=== PATIENT | male | born 1955 | race Caucasian/White ===

== ENCOUNTER 2018-02-17 09:06 | Day surgery (SDC) | payer BC, OTHER ==
[~2018-02-17 09:06] MED LIST: Lactated Ringers 1,000 ML IV SCH; Sodium Chloride 0.9% 10 ML Syringe FLUSH PRN
--- NOTE | 2018-02-17 10:14 | PCM.PN ---
- General Info Date of Service: 02/17/18 - Review of Systems Systems Review Comment:: 62-year-old male referred for colonoscopy. He has a history of diverticulosis as well as colon polyps. His last colon exam was about 5 years ago. I have discussed the proposed colonoscopy with the patient. His recent history and physical is reviewed and there is no significant changes noted. He agrees to proceed with colonoscopy excepting risks. - Patient Data Vitals - Most Recent: Last Vital Signs Temp 97.9 F 02/17/18 09:31 Pulse 54 L 02/17/18 09:31 Resp 18 02/17/18 09:31 BP 143/90 H 02/17/18 09:31 Pulse Ox 94 L 02/17/18 09:31 Weight - Most Recent: 86.183 kg Med Orders - Current: Current Medications Lactated Ringer's (Ringers, Lactated) 1,000 mls @ 125 mls/hr IV ASDIRECTED CHELSIE Last Admin: 02/17/18 09:40 Dose: 125 mls/hr Sodium Chloride (Saline Flush) 10 ml FLUSH ASDIRECTED PRN PRN Reason: Keep Vein Open - Problem List Review Problem List Initiated/Reviewed/Updated: Yes - Assessment Assessment:: history of colon polyps - Plan Plan:: Colonoscopy
[2018-02-17] MEDS ORDERED: Propofol 200 MG/20 ML SDV ONE ×2 (10:15→10:24)
--- NOTE | 2018-02-17 11:01 | PCM.OPNOTE ---
- General Post-Op/Procedure Note Date of Surgery/Procedure: 02/17/18 Operative Procedure(s): Colonoscopy Findings: Moderate Sigmoid Diverticulosis Pre Op Diagnosis: History of colon polyps Post-Op Diagnosis: Diverticulosis Anesthesia Technique: MAC Primary Surgeon: Dionicio Frye Pathology: none Output, Urine Amount: 0 EBL in mLs: 0 Complications: None Condition: Good
--- NOTE | 2018-02-18 08:30 | OR ---
Date of Procedure: 02/17/2018 PREOPERATIVE DIAGNOSIS: History of colon polyps. POSTOPERATIVE DIAGNOSIS: Diverticulosis. OPERATIONS PERFORMED: Colonoscopy. INDICATIONS FOR SURGERY: This 62-year-old male has a history of colon polyps and comes for surveillance colonoscopy. FINDINGS: No polyps were seen on today's exam. The patient has a moderate degree of uncomplicated sigmoid diverticulosis. The remainder of the colon appears normal. DESCRIPTION OF PROCEDURE: The patient was taken to the operating room. He was given intravenous sedation, and with him in the left lateral decubitus position, digital rectal exam was performed showing no rectal masses. The Olympus colonoscope was inserted into the rectum. Retroflexed examination of the rectal canal was performed. The scope was then carefully advanced under direct visualization through the entire length of the colon until the cecum was reached. Cecal acquisition was confirmed by noting the normal internal cecal anatomy including the appendiceal orifice and ileocecal valve. After examining the cecum, the scope was slowly withdrawn sequentially re-examining the colonic segments until the entire colon and rectum had been fully examined. The scope was removed and the patient was taken from the operating room in satisfactory condition. ESTIMATED BLOOD LOSS: Zero. COMPLICATIONS: None. PROGNOSIS: Good. FRANCE Frye MD /[id number]
== END 2018-02-17 11:52 | disposition home or self-care (01) ==
LOC: LL.SDS 09:06
PROVIDERS: ATTEND Surgery
DX: Z12.11 Encounter for screening for malignant neoplasm of colon (principal); K57.30 Diverticulosis of large intestine without perforation or abscess without bleeding; I10 Essential (primary) hypertension; I25.10 Atherosclerotic heart disease of native coronary artery without angina pectoris; R80.9 Proteinuria, unspecified; E11.9 Type 2 diabetes mellitus without complications; E78.5 Hyperlipidemia, unspecified; E66.9 Obesity, unspecified; K21.9 Gastro-esophageal reflux disease without esophagitis; Z79.899 Other long term (current) drug therapy; Z88.2 Allergy status to sulfonamides; Z86.010 Personal history of colon polyps
CPT/HCPCS: 45378; J2704; J7120

== ENCOUNTER 2020-08-11 09:09 | Emergency (ER) | payer MEDICARE, OTHER ==
[2020-08-11 09:44] LABS: PTT,PARTIAL THROMBOPLSTIN TIME 24.9 SEC (24.5-32.8)
[2020-08-11 09:46] LABS: CHLORIDE,CL 102 mmol/L (98-107); SODIUM,NA 138 mmol/L (136-145)
[2020-08-11] MEDS ORDERED: methylPREDNISolone Sodium Succinate 125 MG/2 ML SDV IVPUSH ONE (09:48)
[2020-08-11] MEDS ORDERED: Mineral Oil/Petrolatum Ophth Oint 3.5 GM Tube EYERT ONE (09:51)
[2020-08-11] MEDS: Sodium Chloride 0.9% 10 ML Syringe FLUSH PRN ×2 (10:15→10:16)
--- NOTE | 2020-08-11 11:06 | EDM.PDOC ---
ED HPI GENERAL MEDICAL PROBLEM - General Chief Complaint: Neurological Problem Stated Complaint: stroke code Time Seen by Provider: 08/11/20 09:16 Source of Information: Reports: Patient History Limitations: Reports: No Limitations - History of Present Illness INITIAL COMMENTS - FREE TEXT/NARRATIVE: Patient comes to ER with right sided facial weakness/numbness. Right eye irrit ated. Cannot fully close it or wink. No history of similar problem in past. Overall health has been well other than elevated BP/HTN recent weeks. Mild right side headache. Treatments PSYCHOLOGIST SOCIAL: Reports: Aspirin - Related Data Allergies Allergy/AdvReac Type Severity Reaction Status Date / Time atorvastatin [From Lipitor] Allergy UNKNOWN Verified 08/11/20 09:37 bisoprolol [From Ziac] Allergy UNKNOWN Verified 08/11/20 09:37 fluvastatin [From Lescol] Allergy UNKNOWN Verified 08/11/20 09:37 hydrochlorothiazide Allergy UNKNOWN Verified 08/11/20 09:37 [From Ziac] rosuvastatin [From Crestor] Allergy UNKNOWN Verified 08/11/20 09:37 Qkqtdhy-Bjr-Hym Reductase Allergy Other Verified 08/11/20 09:38 Inhibitor Home Meds: Home Meds ALPRAZolam [Alprazolam] 0.25 - 0.5 mg PO Q6HR PRN 02/16/18 [History] Aspirin 325 mg PO BEDTIME 02/16/18 [History] Fish Oil/[place]-3 Fatty Acids [Fish Oil 1,000 MG] 1 each PO BID 02/16/18 [History] Flaxseed Oil 1,000 mg PO BID 02/16/18 [History] Insulin Glargine,Hum.Rec.Anlog [Talat Morin] 62 unit SQ BEDTIME 02/16/18 [History] Lisinopril 20 mg PO BID 02/16/18 [History] Loratadine 10 mg PO BID 02/16/18 [History] Omeprazole 20 mg PO DAILY 02/16/18 [History] Terazosin [Hytrin] 4 mg PO BEDTIME 02/16/18 [History] Ubidecarenone [Co Q-10] 30 mg PO DAILY 02/16/18 [History] Vitamin E 400 unit PO BID 02/16/18 [History] amLODIPine Besylate [Norvasc] 10 mg PO DAILY 02/16/18 [History] calcium polycarbophiL [Fibercon] 2 tab PO BID 02/16/18 [History] Cholecalciferol (Vitamin D3) [Vitamin D3] 1,000 tab PO DAILY 02/17/18 [History] Non-Formulary Medication [NF Drug] 1 cap PO BID 02/17/18 [History] Non-Formulary Medication [NF Drug] 1 tab PO ASDIRECTED PRN 02/17/18 [History] hydroCHLOROthiazide [Hydrochlorothiazide] 25 mg PO BID 02/17/18 [History] sitaGLIPtin Phos/Metformin HCl [Janumet 50-1,000 MG] 1 tab PO BID 02/17/18 [History] Liraglutide [Victoza] 1.2 mg SUBCUT DAILY 08/11/20 [History] Metoprolol Tartrate 1 tab PO BID 08/11/20 [History] Potassium Chloride 2 tab PO QAM 08/11/20 [History] Potassium Chloride 3 tab PO BEDTIME 08/11/20 [History] Terazosin [Hytrin] 1 cap PO QAM 08/11/20 [History] predniSONE 60 mg PO DAILY #9 tab 08/11/20 [Rx] Past Medical History HEENT History: Reports: Cataract, Impaired Vision Other HEENT History: wears glasses Cardiovascular History: Reports: High Cholesterol, Hypertension Respiratory History: Reports: None Gastrointestinal History: Reports: Colon Polyp, GERD Genitourinary History: Reports: None Musculoskeletal History: Reports: Arthritis, Gout Neurological History: Reports: None Psychiatric History: Reports: Anxiety Endocrine/Metabolic History: Reports: IDDM, Obesity/BMI 30+, Vitamin D Deficiency Hematologic History: Reports: None Immunologic History: Reports: None Oncologic (Cancer) History: Reports: None Dermatologic History: Reports: None - Past Surgical History HEENT Surgical History: Reports: Cataract Surgery Social & Family History - Tobacco Use Tobacco Use Status *Q: Never Tobacco User Second Hand Smoke Exposure: No - Caffeine Use Caffeine Use: Reports: Coffee, Soda - Recreational Drug Use Recreational Drug Use: No ED ROS GENERAL - Review of Systems Review Of Systems: See Below Constitutional: Reports: No Symptoms HEENT: Reports: Other (right eye reddened/increased tears/cannot close right eye as well as left). Denies: Dental Pain, Ear Discharge, Ear Pain, Eye Pain, Rhinitis, Sinus Problem, Throat Pain, Throat Swelling, Vertigo, Vision Change Respiratory: Reports: No Symptoms Cardiovascular: Reports: No Symptoms GI/Abdominal: Reports: No Symptoms : Reports: No Symptoms Musculoskeletal: Reports: No Symptoms Skin: Reports: No Symptoms Neurological: Reports: Headache, Other (right facial weakness/numbness) Psychiatric: Reports: No Symptoms Hematologic/Lymphatic: Reports: No Symptoms ED EXAM, GENERAL - Physical Exam Exam: See Below Exam Limited By: No Limitations General Appearance: Alert, WD/WN, No Apparent Distress Eye Exam: Right Eye: Conjunctival Injection, Bilateral Eye: EOMI, PERRL Ears: Hearing Grossly Normal Nose: No: Nasal Deformity, Nasal Swelling, Nasal Drainage Throat/Mouth: Normal Lips, Normal Voice, No Airway Compromise Head: Other (right sided facial weakness/droop) Neck: Supple, Non-Tender, Full Range of Motion Respiratory/Chest: No Respiratory Distress, Lungs Clear, Normal Breath Sounds, No Accessory Muscle Use Cardiovascular: Regular Rate, Rhythm, No Murmur GI/Abdominal: Normal Bowel Sounds, Soft, Non-Tender, No Distention (Male) Exam: Deferred Rectal (Males) Exam: Deferred Back Exam: Normal Inspection Extremities: Normal Inspection, Normal Capillary Refill Neurological: Alert, Oriented, Normal Cognition, Other (Right sided facial weakness/droop, mild right lid lag. Equal tone/strength upper and lower limbs) Psychiatric: Normal Affect, Normal Mood Skin Exam: Warm, Dry, Intact, Normal Color Course - Vital Signs Last Recorded V/S: Last Vital Signs Temp 36.6 C 08/11/20 09:10 Pulse 77 08/11/20 09:10 Resp 18 08/11/20 09:10 BP 159/79 H 08/11/20 09:10 Pulse Ox 95 08/11/20 09:10 - Orders/Labs/Meds Orders: Active Orders 24 hr Category Date Time Status Peripheral IV Care [RC] . DIRECTED Care 08/11/20 10:06 Active Head wo Cont [CT] Routine Exams 08/11/20 09:17 Taken PROLACTIN [REF] Stat Lab 08/11/20 09:20 Received Sodium Chloride 0.9% [Saline Flush] Med 08/11/20 10:06 Active 10 ml FLUSH ASDIRECTED PRN Peripheral IV Insertion Adult [OM.PC] Routine Oth 08/11/20 10:06 Ordered Medication Orders Sodium Chloride (Saline Flush) 10 ml FLUSH ASDIRECTED PRN PRN Reason: Keep Vein Open Last Admin: 08/11/20 10:16 Dose: 10 ml Documented by: Admin: 08/11/20 10:15 Dose: 10 ml Documented by: DOMINGO Labs: Laboratory Tests 08/11/20 08/11/20 08/11/20 Range/Units 09:20 09:20 09:20 WBC 6.4 (4.0-10.2) K/uL RBC 4.94 (4.33-5.41) M/uL Hgb 15.6 (13.1-16.8) g/dL Hct 43.4 (39.0-49.0) % MCV 87.9 (84.0-98.0) fL MCH 31.6 (28.2-33.3) pg MCHC 35.9 (31.7-36.0) g/dL RDW 13.1 (11.2-14.1) % Plt Count 220 (150-350) K/uL Neut % (Auto) 45.8 (45.0-80.0) % Lymph % (Auto) 40.7 (10.0-50.0) % Mcmullen % (Auto) 9.1 (2.0-14.0) % Eos % (Auto) 3.1 (0.0-5.0) % Baso % (Auto) 1.3 (0.0-2.0) % Neut # (Auto) 2.91 (1.40-7.00) K/uL Lymph # (Auto) 2.59 (0.50-3.50) K/uL Mcmullen # (Auto) 0.58 (0.00-1.00) K/uL Eos # (Auto) 0.20 (0.00-0.50) K/uL Baso # (Auto) 0.08 (0.00-0.20) K/uL PT 9.9 (9.5-12.0) SEC INR 1.0 APTT 24.9 (24.5-32.8) SEC D-Dimer, Quantitative < 100 (0-400) ng/mL Sodium (136-145) mmol/L Potassium (3.5-5.1) mmol/L Chloride (98-107) mmol/L Carbon Dioxide (21.0-32.0) mmol/L BUN (7-18) mg/dL Creatinine (0.51-1.17) mg/dL Est Cr Clr Drug Dosing Estimated GFR (MDRD) mL/min Glucose (74-106) mg/dL Calcium (8.5-10.1) mg/dL Magnesium (1.8-2.4) mg/dL Total Bilirubin (0.2-1.0) mg/dL AST (15-37) U/L ALT (12-78) U/L Alkaline Phosphatase (46-116) IU/L Creatine Kinase (26-308) U/L Creatine Kinase Index (0.0-2.5) % CK-MB (CK-2) (0.00-3.60) ng/mL Troponin I (0.000-0.056) ng/mL NT-Pro-B Natriuret Pep (0-125) pg/mL Total Protein (6.4-8.2) g/dL Albumin (3.4-5.0) g/dL 08/11/20 Range/Units 09:20 WBC (4.0-10.2) K/uL RBC (4.33-5.41) M/uL Hgb (13.1-16.8) g/dL Hct (39.0-49.0) % MCV (84.0-98.0) fL MCH (28.2-33.3) pg MCHC (31.7-36.0) g/dL RDW (11.2-14.1) % Plt Count (150-350) K/uL Neut % (Auto) (45.0-80.0) % Lymph % (Auto) (10.0-50.0) % Mcmullen % (Auto) (2.0-14.0) % Eos % (Auto) (0.0-5.0) % Baso % (Auto) (0.0-2.0) % Neut # (Auto) (1.40-7.00) K/uL Lymph # (Auto) (0.50-3.50) K/uL Mcmullen # (Auto) (0.00-1.00) K/uL Eos # (Auto) (0.00-0.50) K/uL Baso # (Auto) (0.00-0.20) K/uL PT (9.5-12.0) SEC INR APTT (24.5-32.8) SEC D-Dimer, Quantitative (0-400) ng/mL Sodium 138 (136-145) mmol/L Potassium 3.4 L (3.5-5.1) mmol/L Chloride 102 (98-107) mmol/L Carbon Dioxide 24.9 (21.0-32.0) mmol/L BUN 17 (7-18) mg/dL Creatinine 0.76 (0.51-1.17) mg/dL Est Cr Clr Drug Dosing TNP Estimated GFR (MDRD) > 60 mL/min Glucose 199 H (74-106) mg/dL Calcium 9.1 (8.5-10.1) mg/dL Magnesium 1.7 L (1.8-2.4) mg/dL Total Bilirubin 0.6 (0.2-1.0) mg/dL AST 17 (15-37) U/L ALT 38 (12-78) U/L Alkaline Phosphatase 81 (46-116) IU/L Creatine Kinase 96 (26-308) U/L Creatine Kinase Index 0.8 (0.0-2.5) % CK-MB (CK-2) 0.80 (0.00-3.60) ng/mL Troponin I 0.000 (0.000-0.056) ng/mL NT-Pro-B Natriuret Pep 30 (0-125) pg/mL Total Protein 7.2 (6.4-8.2) g/dL Albumin 4.2 (3.4-5.0) g/dL Meds: Medications Generic Name Dose Route Start Last Admin Trade Name Freq PRN Reason Stop Dose Admin Sodium Chloride 10 ml 08/11/20 10:06 08/11/20 10:16 Saline Flush FLUSH 10 ml ASDIRECTED PRN Administration Keep Vein Open Discontinued Medications Generic Name Dose Route Start Last Admin Trade Name Freq PRN Reason Stop Dose Admin Magnesium Sulfate/Dextrose 1 100 mls @ 100 mls/hr 08/11/20 09:52 08/11/20 10:05 gm/ Premix IV 08/11/20 10:51 100 mls/hr ONETIME ONE Administration Methylprednisolone Sodium Succinate 125 mg 08/11/20 09:48 08/11/20 10:06 Solu-Medrol IVPUSH 08/11/20 09:49 125 mg ONETIME ONE Administration Mineral Oil/White Petrolatum 1 gm 08/11/20 09:51 08/11/20 10:06 Lacri-Lube S.O.P Oint EYERT 08/11/20 09:52 1 gm ONETIME ONE Administration Potassium Chloride 40 meq 08/11/20 11:08 Klor-Con M20 PO 08/11/20 11:09 ONETIME ONE - Radiology Interpretation CT Results Date: 08/11/20 CT Results Time: 09:41 (Unremarkable head CT) - Re-Assessments/Exams Free Text/Narrative Re-Assessment/Exam: 08/11/20 11:09 CT of head obtained given patient's right sided facial droop/weakness. Labs ordered. CT results unremarkable per Radiology. Labs unremarkable except for mildly low K and also low MG. IV Mg ordered as this may be contributing to his issues with elevated BPs. IV Solu-medrol given for treatment of suspected Philo's Palsy. He is cautioned that this will elevate his blood sugars. To go on lower dose Prednisone PO starting on Wednesday and to continue that for three days. Recommended starting regular Mag supplement. Diet/lifestyle changes encouraged to assist with ongoing HTN/Diabetes concerns. Eye drops/ointment along with night time taping of affected right eye reviewed as well as risk of corneal injury if the eye is allowed to dry out too frequently. To follow up with primary provider. Regular BP checks recommended. Departure - Departure Time of Disposition: 11:15 Disposition: Home, Self-Care 01 Condition: Good Clinical Impression: Right-sided Corbett's palsy, Hypomagnesemia Hypertension Qualifiers: Hypertension type: unspecified Qualified Code(s): I10 - Essential (primary) hypertension - Discharge Information *PRESCRIPTION DRUG MONITORING PROGRAM REVIEWED*: Not Applicable *COPY OF PRESCRIPTION DRUG MONITORING REPORT IN PATIENT SEGUN: Not Applicable Prescriptions: predniSONE 60 mg PO DAILY #9 tab Instructions: Corbett Palsy, Adult Forms: ED Department Discharge Additional Instructions: Watch your blood sugars! The steroid may make it elevate significantly. Follow up with your primary provider in person/by phone as needed if significant elevation noted as diabetes meds may need adjusting. Make appointment to follow up for recheck with your provider later this week or early the following week to see how you are doing. Use artificial tears to help lubricate the right eye frequently during day. At night use OINTMENT version/tape eye shut with paper tape to help protect the cornea from drying out. support group manager Mag Glycinate or Mag Taurate to take 250-400mg daily indefinitely as you have low magnesium levels. Recommended to get Mag level checked periodically at your clinic so that dose adjustments can be made as needed. Follow up otherwise as needed if you have problems/concerns. Keep on top of your blood pressure. Diet changes as discussed recommended to assist with both diabetes and hypertension. Sepsis Event Note (ED) - Evaluation Sepsis Screening Result: No Definite Risk - Focused Exam Vital Signs: Vital Signs Temp Pulse Resp BP Pulse Ox 08/11/20 09:10 36.6 C 77 18 159/79 H 95 - My Orders Last 24 Hours: My Active Orders 08/11/20 09:17 Head wo Cont [CT] Routine 08/11/20 09:20 PROLACTIN [REF] Stat 08/11/20 10:06 Peripheral IV Care [RC] . DIRECTED Sodium Chloride 0.9% [Saline Flush] 10 ml FLUSH ASDIRECTED PRN Peripheral IV Insertion Adult [OM.PC] Routine - Assessment/Plan Last 24 Hours: My Active Orders 08/11/20 09:17 Head wo Cont [CT] Routine 08/11/20 09:20 PROLACTIN [REF] Stat 08/11/20 10:06 Peripheral IV Care [RC] . DIRECTED Sodium Chloride 0.9% [Saline Flush] 10 ml FLUSH ASDIRECTED PRN Peripheral IV Insertion Adult [OM.PC] Routine
[2020-08-11] MEDS ORDERED: Potassium Chloride 20 MEQ Tab.ER PO ONE (11:08)
== END 2020-08-11 11:35 | disposition home or self-care (01) ==
LOC: LL.ED 09:09
DX: G51.0 Bell's palsy (principal); E83.42 Hypomagnesemia; I10 Essential (primary) hypertension; K21.9 Gastro-esophageal reflux disease without esophagitis; M10.9 Gout, unspecified; F41.9 Anxiety disorder, unspecified; E11.9 Type 2 diabetes mellitus without complications; E66.9 Obesity, unspecified; Z88.8 Allergy status to other drugs, medicaments and biological substances; Z79.82 Long term (current) use of aspirin; Z79.899 Other long term (current) drug therapy; Z79.4 Long term (current) use of insulin
CPT/HCPCS: 36415; 70450; 80053; 82550; 82553; 83735; 83880; 84146; 84484; 85025; 85379; 85610; 85730; 96365; 96375; 99285-25; J2930; J3475

== ENCOUNTER 2023-08-12 10:00 | Day surgery (SDC) | payer MEDICARE ==
[~2023-08-12 10:00] MED LIST changes: -Lactated Ringers 1,000 ML IV SCH; +Midazolam 1 MG/ML 2 ML SDV ONE; +Propofol 200 MG/20 ML SDV ONE; -Sodium Chloride 0.9% 10 ML Syringe FLUSH PRN
[2023-08-12] MEDS: Lactated Ringers 1,000 ML IV SCH (10:08)
[2023-08-12] MEDS ORDERED: Sodium Chloride 0.9% 10 ML Syringe FLUSH PRN (10:30)
== END 2023-08-12 13:01 | disposition home or self-care (01) ==
LOC: LL.SDS 10:00
PROVIDERS: ATTEND Surgery
DX: Z12.11 Encounter for screening for malignant neoplasm of colon (principal); D12.0 Benign neoplasm of cecum; D12.2 Benign neoplasm of ascending colon; K57.30 Diverticulosis of large intestine without perforation or abscess without bleeding; I10 Essential (primary) hypertension; E11.9 Type 2 diabetes mellitus without complications; K21.9 Gastro-esophageal reflux disease without esophagitis; E78.2 Mixed hyperlipidemia; F41.9 Anxiety disorder, unspecified; E66.9 Obesity, unspecified; Z68.31 Body mass index [BMI] 31.0-31.9, adult; Z79.84 Long term (current) use of oral hypoglycemic drugs; Z79.4 Long term (current) use of insulin; Z79.82 Long term (current) use of aspirin; Z79.899 Other long term (current) drug therapy
CPT/HCPCS: 00812; 82947; J2250; J2704; J7120

== ENCOUNTER 2023-12-19 07:03 | Emergency (ER) | payer MEDICARE ==
[2023-12-19] MEDS ORDERED: Sodium Chloride 0.9% 10 ML Syringe FLUSH PRN (07:28)
[2023-12-19 07:35] LABS: BASOPHILS ABSOLUTE AUTO 0.09 K/uL (0.00-0.20); BASOPHILS PERCENT AUTO 1.5 % (0.0-2.0); EOSINOPHILS ABSOLUTE AUTO 0.26 K/uL (0.00-0.50); EOSINOPHILS PERCENT AUTO 4.3 % (0.0-5.0); HEMATOCRIT 47.5 % (39.0-49.0); HEMOGLOBIN 16.7 g/dL (13.1-16.8); LYMPHOCYTES ABSOLUTE AUTO 2.64 K/uL (0.50-3.50); LYMPHOCYTES PERCENT AUTO 43.5 % (10.0-50.0); MEAN CORPUSCULAR HEMOGLOBIN 31.2 pg (28.2-33.3); MEAN CORPUSCULAR HGB CONC 35.2 g/dL (31.7-36.0); MEAN CORPUSCULAR VOLUME 88.6 fL (84.0-98.0); MONOCYTES ABSOLUTE AUTO 0.69 K/uL (0.00-1.00); MONOCYTES PERCENT AUTO 11.4 % (2.0-14.0); NEUTROPHILS ABSOLUTE AUTO 2.39 K/uL (1.40-7.00); NEUTROPHILS PERCENT AUTO 39.3 % (45.0-80.0); PLATELET COUNT,PLT 201 K/uL (150-350); RED BLOOD CELL COUNT 5.36 M/uL (4.33-5.41); WHITE BLOOD CELL COUNT,WBC 6.1 K/uL (4.0-10.2)
[2023-12-19 08:01] LABS: PROTHROMBIN TIME 9.5 SEC (9.0-11.1)
[2023-12-19 08:05] LABS: ALBUMIN 4.2 g/dL (3.4-5.0); ANION GAP 9.8 meq/L (7-15); BILIRUBIN TOTAL 0.6 mg/dL (0.2-1.0); CALCIUM 9.2 mg/dL (8.5-10.1); CARBON DIOXIDE,CO2 28.2 mmol/L (21.0-32.0); CREATININE 1.09 mg/dL (0.51-1.17); EST CRCL DRUG DOSING (CG) 54.85 mL/min; MAGNESIUM 2.1 mg/dL (1.8-2.4); POTASSIUM,K 3.5 mmol/L (3.5-5.1); PROTEIN TOTAL,TP 7.5 g/dL (6.4-8.2)
[2023-12-19] MEDS: Iopamidol 755 Mg/ML 100 ML Bottle IVPUSH ONE (08:42)
[2023-12-19] MEDS: Clopidogrel 75 MG Tab PO ONE (09:24)
== END 2023-12-19 10:05 | disposition home or self-care (01) ==
LOC: LL.ED 07:03
DX: R29.818 Other symptoms and signs involving the nervous system (principal); I65.1 Occlusion and stenosis of basilar artery; I10 Essential (primary) hypertension; K21.9 Gastro-esophageal reflux disease without esophagitis; E78.00 Pure hypercholesterolemia, unspecified; E11.9 Type 2 diabetes mellitus without complications; Z88.8 Allergy status to other drugs, medicaments and biological substances; Z79.82 Long term (current) use of aspirin; Z79.84 Long term (current) use of oral hypoglycemic drugs; Z79.4 Long term (current) use of insulin; Z79.899 Other long term (current) drug therapy
CPT/HCPCS: 36415; 70450; 70496; 70498; 71045; 80053; 82947; 83735; 85025; 85610; 93005; 93010; 99284; A9270-GY; Q9967

== ENCOUNTER 2025-03-06 19:28 | Emergency (ER) | payer MEDICARE ==
[2025-03-06] MEDS ORDERED: Sodium Chloride 0.9% 10 ML Syringe FLUSH PRN (19:46)
[2025-03-06 20:00] LABS: BASOPHILS ABSOLUTE AUTO 0.05 K/uL (0.00-0.20); BASOPHILS PERCENT AUTO 0.9 % (0.0-2.0); EOSINOPHILS ABSOLUTE AUTO 0.20 K/uL (0.00-0.50); EOSINOPHILS PERCENT AUTO 3.4 % (0.0-5.0); IMMATURE GRAN ABSOLUTE AUTO 0.05 10^3/uL (0.00-0.04); IMMATURE GRAN PERCENT AUTO 0.9 % (0.0-0.4); LYMPHOCYTES ABSOLUTE AUTO 2.56 K/uL (0.50-3.50); LYMPHOCYTES PERCENT AUTO 43.9 % (10.0-50.0); MONOCYTES ABSOLUTE AUTO 0.52 K/uL (0.00-1.00); MONOCYTES PERCENT AUTO 8.9 % (2.0-14.0); NEUTROPHILS ABSOLUTE AUTO 2.45 K/uL (1.40-7.00); NEUTROPHILS PERCENT AUTO 42.0 % (45.0-80.0); PLATELET COUNT,PLT 196 K/uL (150-350); RED BLOOD CELL COUNT 4.94 M/uL (4.33-5.41); RED CELL DISTRIBUTION WIDTH 12.5 % (11.2-14.1); WHITE BLOOD CELL COUNT,WBC 5.8 K/uL (4.0-10.2)
[2025-03-06] MEDS: Nitroglycerin 0.4 MG Tab.SL SL PRN (20:17)
[2025-03-06 20:27] LABS: ALANINE AMINOTRANSFERASE,ALT 35 U/L (12-78); ASPARTATE AMNIOTRANSFERASE,AST 19 U/L (15-37); BILIRUBIN TOTAL 0.5 mg/dL (0.2-1.0); BLOOD UREA NITROGEN,BUN 22 mg/dL (7-18); CARBON DIOXIDE,CO2 26.9 mmol/L (21.0-32.0); CHLORIDE,CL 103 mmol/L (98-107); CREATININE 1.24 mg/dL (0.51-1.17); GLUCOSE RANDOM 219 mg/dL (70-99); POTASSIUM,K 3.3 mmol/L (3.5-5.1); PRO B-TYPE NATRIUR PEPT,BNPPRO 80 pg/mL (0-125); PROTEIN TOTAL,TP 7.1 g/dL (6.4-8.2); SODIUM,NA 140 mmol/L (136-145)
[2025-03-06 20:28] LABS: ESTIMATED GFR 62 mL/min (>=60)
[2025-03-06] MEDS: Potassium Bicarbonate/Cit Ac 20 MEQ Effervescent Tab PO ONE (20:42)
[2025-03-06 22:19] VITALS: BP 160/89; PULSE 67
== END 2025-03-06 22:35 | disposition home or self-care (01) ==
LOC: LL.ED 19:28
DX: I16.0 Hypertensive urgency (principal); I10 Essential (primary) hypertension; E78.00 Pure hypercholesterolemia, unspecified; E11.9 Type 2 diabetes mellitus without complications; Z88.8 Allergy status to other drugs, medicaments and biological substances; Z79.82 Long term (current) use of aspirin; Z79.84 Long term (current) use of oral hypoglycemic drugs; Z79.4 Long term (current) use of insulin; Z79.899 Other long term (current) drug therapy
CPT/HCPCS: 36415; 71046; 80053; 83735; 83880; 84484; 85025; 85379; 93005; 93010; 99284; 99285; A9270-GY